=== PATIENT | female | born 1985 | race Two or more races ===

== ENCOUNTER → 2017-12-20 | Outpatient (CLI) | payer MEDICAID ==
[2017-12-20 14:04] LABS: Alcohol, Urine < 3.0 mg/dL (0-5); Amphetamine Screen, Urine NEGATIVE (NEGATIVE); Barbiturate Scree,Urine NEGATIVE (NEGATIVE); Benzodiazephine Screen, Urine NEGATIVE (NEGATIVE); Cannabinoid Screen, Urine NEGATIVE (NEGATIVE); Cocaine Screen, Urine NEGATIVE (NEGATIVE); Opiate Scree,Urine NEGATIVE (NEGATIVE); Phencyclidine Screen, Urine NEGATIVE (NEGATIVE)
[2017-12-20 15:59] LABS: Hematocrit 36.5 % (36.0-46.0); Mean Corpuscular Hemoglobin 27.1 pg (28.0-32.0); Mean Corpuscular Hgb Conc. 32.9 g/dL (32.0-36.0); Mean Corpuscular Volume 82.5 fL (80.0-100.0); Platelet Count (auto) 321 10^3/uL (140-450); Red Blood Cells 4.42 10^6/uL (4.0-5.20); Red Cell Distribution Width 14.2 % (11.8-14.3); White Blood Cell 11.1 10^3/uL (4.4-10.8)
[2017-12-20 16:16] LABS: Band Neutrophils % (manual) 0; Basophils % (manual) 0 (0.0-2.0); Blast Cells 0; Eosinophils % (manual) 0 (0-7); Metamyelocytes % 0; Myelocytes % 0; Promyelocytes % 0; Reactive Lymphocytes 0
[2017-12-20 17:24] LABS: Lymphocytes % (manual) 20 (10.0-50.0); Monocytes % (manual) 7 (0-12)
== END | disposition home or self-care (01) ==
LOC: LAB 09:51
PROVIDERS: ATTEND Obstetrics & Gynecology
DX: Z34.81 Encounter for supervision of other normal pregnancy, first trimester (principal); Z31.430 Encounter of female for testing for genetic disease carrier status for procreative management; Z20.2 Contact with and (suspected) exposure to infections with a predominantly sexual mode of transmission; Z3A.01 Less than 8 weeks gestation of pregnancy
CPT/HCPCS: 36415; 80307; 83036; 84144; 84702; 85007; 85027; 86703; 86762; 86850; 86900; 86901; 87086; 87340

== ENCOUNTER 2018-03-17 10:43 | Observation (INO) | payer MEDICAID ==
[2018-03-17] MEDS ORDERED: PREN-96 PO (12:36)
== END 2018-03-17 12:43 | disposition home or self-care (01) | DRG 566 ==
LOC: LDRP 10:43
PROVIDERS: ADMIT Obstetrics & Gynecology; ATTEND Obstetrics & Gynecology
DX: O36.63X0 Maternal care for excessive fetal growth, third trimester, not applicable or unspecified (principal); Z3A.31 31 weeks gestation of pregnancy
CPT/HCPCS: 59025; 76818; 81002; G0378

== ENCOUNTER 2018-03-25 10:50 | Observation (INO) | payer MEDICAID ==
[~2018-03-25] VITALS: Ht 152.4 cm; Wt 76.2 kg
[~2018-03-25 10:50] MED LIST: PREN-96 PO
== END 2018-03-25 12:20 | disposition home or self-care (01) | DRG 566 ==
LOC: LDRP 10:50
PROVIDERS: ADMIT Obstetrics & Gynecology; ATTEND Obstetrics & Gynecology
DX: O36.63X0 Maternal care for excessive fetal growth, third trimester, not applicable or unspecified (principal); Z3A.32 32 weeks gestation of pregnancy
CPT/HCPCS: 59025; 76818; 81002; G0378

== ENCOUNTER 2018-03-30 15:07 | Observation (INO) | payer MEDICAID ==
[2018-03-30 16:27] LABS: Albumin 2.4 g/dL (3.4-5.0); BUN/Creatinine Ratio 15.4; Calcium 8.4 mg/dL (8.5-10.1); Hemoglobin 9.4 g/dL (12.2-16.2); Potassium 3.7 mmol/L (3.5-5.1); Uric Acid 3.1 mg/dL (2.6-6.0); White Blood Cell 9.3 10^3/uL (4.4-10.8)
[2018-03-30 16:30] LABS: Bilirubin, Total 0.2 mg/dL (0.2-1.0); Total Protein 7.1 g/dL (6.4-8.2)
[2018-03-30 16:31] LABS: Urine Bacteria FEW /hpf (None Seen); Urine Blood Negative /uL (Negative); Urine Specific Gravity 1.008 (1.001-1.035); Urine WBC 1 /hpf (0 - 5)
[2018-03-30 16:31] LABS: Hematocrit 28.8 % (36.0-46.0); Mean Corpuscular Hemoglobin 23.8 pg (28.0-32.0); Mean Corpuscular Hgb Conc. 32.6 g/dL (32.0-36.0); Platelet Count (auto) 353 10^3/uL (140-450); Red Blood Cells 3.94 10^6/uL (4.0-5.20)
[2018-03-30 16:45] LABS: Basophils % (manual) 0 (0.0-2.0); Blast Cells 0; Myelocytes % 0; Promyelocytes % 0; Reactive Lymphocytes 0
[2018-03-30 17:12] LABS: INR 0.91 (0.9-1.15); Partial Thromboplastin Time 23.4 sec (23.78-33.04); Prothrombin Time 9.8 sec (9.27-12.13)
[2018-03-30 17:39] LABS: Band Neutrophils % (manual) 3; Eosinophils % (manual) 1 (0-7); Lymphocytes % (manual) 18 (10.0-50.0); Metamyelocytes % 1; Monocytes % (manual) 6 (0-12)
== END 2018-03-30 17:42 | disposition home or self-care (01) | DRG 566 ==
LOC: LDRP 15:07
PROVIDERS: ADMIT Obstetrics & Gynecology; ATTEND Obstetrics & Gynecology
DX: O26.893 Other specified pregnancy related conditions, third trimester (principal); R10.30 Lower abdominal pain, unspecified; Z3A.33 33 weeks gestation of pregnancy
CPT/HCPCS: 36415; 59025; 76818; 80053; 81001; 81002; 84550; 85007; 85027; 85610; 85730; G0378

== ENCOUNTER 2018-04-02 13:28 | Observation (INO) | payer MEDICAID ==
[2018-04-02 14:49] LABS: Protein, Urine 28.2 mg/dL (0.0-11.9)
[2018-04-02 15:04] LABS: 24 Hr. Total Protein, Urine 860.1 mg/24 Hr (<149.1)
[2018-04-02 16:41] LABS: Albumin 2.5 g/dL (3.4-5.0); Bilirubin, Total 0.2 mg/dL (0.2-1.0); Calcium 8.9 mg/dL (8.5-10.1); Hemoglobin 10.5 g/dL (12.2-16.2); Mean Corpuscular Hemoglobin 24.6 pg (28.0-32.0); Mean Corpuscular Volume 72.3 fL (80.0-100.0); Platelet Count (auto) 400 10^3/uL (140-450); Potassium 3.9 mmol/L (3.5-5.1); Red Blood Cells 4.28 10^6/uL (4.0-5.20); Red Cell Distribution Width 16.3 % (11.8-14.3); Total Protein 7.7 g/dL (6.4-8.2); Uric Acid 3.5 mg/dL (2.6-6.0); White Blood Cell 11.8 10^3/uL (4.4-10.8)
[2018-04-02 16:43] LABS: Basophils % (manual) 0 (0.0-2.0); Blast Cells 0; Eosinophils % (manual) 0 (0-7); Metamyelocytes % 0; Myelocytes % 0; Promyelocytes % 0; Reactive Lymphocytes 0
[2018-04-02 16:45] LABS: INR 0.93 (0.9-1.15); Partial Thromboplastin Time 23.7 sec (23.78-33.04)
[2018-04-02 17:07] LABS: BUN/Creatinine Ratio 14.3
[2018-04-02 17:23] LABS: Band Neutrophils % (manual) 6
[2018-04-02 17:24] LABS: Lymphocytes % (manual) 13 (10.0-50.0); Monocytes % (manual) 10 (0-12)
[2018-04-02] MEDS ORDERED: BETAMETHASONE ACET (6MG/ML) 5ML VIAL IM ONE (17:30)
== END 2018-04-02 17:50 | disposition home or self-care (01) | DRG 566 ==
LOC: LDRP 13:28
PROVIDERS: ADMIT Obstetrics & Gynecology; ATTEND Obstetrics & Gynecology
DX: O13.3 Gestational [pregnancy-induced] hypertension without significant proteinuria, third trimester (principal); Z3A.33 33 weeks gestation of pregnancy
CPT/HCPCS: 36415; 59025; 80053; 81002; 84156; 84550; 85007; 85027; 85610; 85730; 96372; G0378; J0702

== ENCOUNTER 2018-04-03 19:17 | Observation (INO) | payer MEDICAID ==
[~2018-04-03] VITALS: Ht 152.4 cm; Wt 76.2 kg
[2018-04-03] MEDS ORDERED: BETAMETHASONE ACET (6MG/ML) 5ML VIAL IM SCH (20:00)
== END 2018-04-03 21:54 | disposition home or self-care (01) | DRG 566 ==
LOC: LDRP 19:17
PROVIDERS: ADMIT Specialist; ATTEND Specialist
DX: O62.9 Abnormality of forces of labor, unspecified (principal); Z3A.34 34 weeks gestation of pregnancy
CPT/HCPCS: 59025; 76818; 81002; 96372; G0378

== ENCOUNTER 2018-04-06 11:05 | Observation (INO) | payer MEDICAID | END 2018-04-06 13:08 | disposition home or self-care (01) | DRG 566 | LOC: LDRP 11:05 | PROVIDERS: ADMIT Specialist; ATTEND Specialist | DX: O36.63X0 Maternal care for excessive fetal growth, third trimester, not applicable or unspecified (principal); F79 Unspecified intellectual disabilities; O99.343 Other mental disorders complicating pregnancy, third trimester; Z3A.34 34 weeks gestation of pregnancy | CPT/HCPCS: 59025; 76818; 81002; G0378 ==

== ENCOUNTER 2018-04-13 11:17 | Observation (INO) | payer MEDICAID | END 2018-04-13 12:30 | disposition home or self-care (01) | DRG 563 | LOC: LDRP 11:17 | PROVIDERS: ADMIT Specialist; ATTEND Specialist | DX: O60.03 Preterm labor without delivery, third trimester (principal); Z3A.35 35 weeks gestation of pregnancy | CPT/HCPCS: 76818; G0378; 59025; 81002 ==

== ENCOUNTER 2018-04-15 12:30 | Observation (INO) | payer MEDICAID ==
[2018-04-15] MEDS ORDERED: NIF10C GT (13:18)
== END 2018-04-15 13:30 | disposition home or self-care (01) | DRG 566 ==
LOC: LDRP 12:30
PROVIDERS: ADMIT Specialist; ATTEND Specialist
DX: O62.9 Abnormality of forces of labor, unspecified (principal); Z3A.35 35 weeks gestation of pregnancy
CPT/HCPCS: 59025; 81002; G0378

== ENCOUNTER 2018-04-22 21:01 | Observation (INO) | payer MEDICAID ==
[~2018-04-22 21:01] MED LIST changes: +NIF10C GT
== END 2018-04-23 00:10 | disposition home or self-care (01) | DRG 566 ==
LOC: LDRP 21:01
PROVIDERS: ADMIT Specialist; ATTEND Specialist
DX: O36.63X0 Maternal care for excessive fetal growth, third trimester, not applicable or unspecified (principal); Z3A.36 36 weeks gestation of pregnancy
CPT/HCPCS: 59025; 76818; 81002; G0378

== ENCOUNTER 2018-04-27 11:06 | Observation (INO) | payer MEDICAID | END 2018-04-27 12:30 | disposition home or self-care (01) | DRG 566 | LOC: LDRP 11:06 | PROVIDERS: ADMIT Specialist; ATTEND Specialist | DX: O36.63X0 Maternal care for excessive fetal growth, third trimester, not applicable or unspecified (principal); Z3A.37 37 weeks gestation of pregnancy | CPT/HCPCS: 59025; 76818; 81002; G0378 ==

== ENCOUNTER 2018-05-04 10:24 | Observation (INO) | payer MEDICAID | END 2018-05-04 12:15 | disposition home or self-care (01) | DRG 566 | LOC: LDRP 10:24 | PROVIDERS: ADMIT Obstetrics & Gynecology; ATTEND Obstetrics & Gynecology | DX: O36.63X0 Maternal care for excessive fetal growth, third trimester, not applicable or unspecified (principal); Z3A.38 38 weeks gestation of pregnancy | CPT/HCPCS: 59025; 76818; 81002; G0378 ==

== ENCOUNTER 2018-05-10 08:55 | Observation (INO) | payer MEDICAID ==
[~2018-05-10 08:55] MED LIST changes: -NIF10C GT
[2018-05-10 10:13] LABS: Hemoglobin 10.8 g/dL (12.2-16.2)
[2018-05-10 10:15] LABS: Hematocrit 33.7 % (36.0-46.0); Mean Corpuscular Hgb Conc. 32.2 g/dL (32.0-36.0); Mean Corpuscular Volume 71.6 fL (80.0-100.0); Platelet Count (auto) 333 10^3/uL (140-450); Red Blood Cells 4.71 10^6/uL (4.0-5.20); Red Cell Distribution Width 19.1 % (11.8-14.3); White Blood Cell 10.5 10^3/uL (4.4-10.8)
[2018-05-10 10:20] LABS: Blast Cells 0; Metamyelocytes % 0; Myelocytes % 0; Promyelocytes % 0; Reactive Lymphocytes 0
[2018-05-10 10:33] LABS: Albumin 2.5 g/dL (3.4-5.0); Calcium 8.9 mg/dL (8.5-10.1); Potassium 3.9 mmol/L (3.5-5.1); Uric Acid 6.2 mg/dL (2.6-6.0)
[2018-05-10 10:36] LABS: BUN/Creatinine Ratio 15.8; Bilirubin, Total 0.3 mg/dL (0.2-1.0); Total Protein 7.2 g/dL (6.4-8.2)
[2018-05-10 10:39] LABS: INR 0.88 (0.9-1.15); Partial Thromboplastin Time 26.1 sec (23.78-33.04); Prothrombin Time 9.5 sec (9.27-12.13)
[2018-05-10 10:49] LABS: Band Neutrophils % (manual) 3; Basophils % (manual) 1 (0.0-2.0); Eosinophils % (manual) 3 (0-7); Lymphocytes % (manual) 27 (10.0-50.0); Monocytes % (manual) 4 (0-12)
[2018-05-10 10:56] LABS: Urine Bacteria NONE SEEN /hpf (None Seen); Urine Blood Negative /uL (Negative); Urine Specific Gravity 1.018 (1.001-1.035); Urine WBC 2 /hpf (0 - 5)
[2018-05-11] MEDS ORDERED: FERR-7 PO (05:00)
== END 2018-05-10 11:35 | disposition home or self-care (01) | DRG 566 ==
LOC: LDRP 08:55
PROVIDERS: ADMIT Obstetrics & Gynecology; ATTEND Obstetrics & Gynecology
DX: O13.3 Gestational [pregnancy-induced] hypertension without significant proteinuria, third trimester (principal); O62.9 Abnormality of forces of labor, unspecified; Z3A.39 39 weeks gestation of pregnancy
CPT/HCPCS: 36415; 59025; 80053; 81001; 81002; 84550; 85007; 85027; 85610; 85730; 86850; 86900; 86901; G0378

== ENCOUNTER 2018-05-10 20:05 | Inpatient (IN) | payer MEDICAID ==
[~2018-05-10] VITALS: Ht 152.4 cm; Wt 75.3 kg
[2018-05-10] MEDS ORDERED: LACT. RINGERS/OXYTOCIN 20UNITS 1,000 ML IV SCH (20:10)
[2018-05-10] MEDS ORDERED: LIDOCAINE 2%HCL (LOCAL ANESTH.) INJ 20ML MDV ID ONE (20:15)
[2018-05-10] MEDS ORDERED: WITCH HAZEL-GLYCERIN PAD TOP PRN (20:15)
[2018-05-10] MEDS ORDERED: NALBUPHINE HCL 10 MG/1ml INJECTION IV PRN (20:15)
[2018-05-10] MEDS ORDERED: PROMETHAZINE HCL 25 MG/ML 1ML IV PRN (20:15)
[2018-05-10] MEDS ORDERED: PHISODERM TOP SOLN 240ML BTL TOP PRN (20:15)
[2018-05-10] MEDS ORDERED: CARBOPROST TROMETHAMINE 250 MCG/1ML VIAL IM PRN (20:15)
[2018-05-10] MEDS ORDERED: DERMOPLAST 60ML BOTTLE TOP PRN (20:15)
[2018-05-10] MEDS: LACTATED RINGER'S 1,000 ML IV SCH (20:58)
[2018-05-11] VITALS (8 sets, daily range): BP systolic 105–146; BP diastolic 60–74
[2018-05-11] MEDS: LACTATED RINGER'S 1,000 ML IV SCH ×3 (03:50→20:41)
[2018-05-11] MEDS ORDERED: FERR-7 PO (05:00)
[2018-05-11] MEDS ORDERED: MORPHINE SULF(PF) 0.5MG/ML 10ML VIAL ONE (14:41)
[2018-05-11] MEDS ORDERED: MIDAZOLAM HCL 1MG/1ML-2 ML VIAL ONE (14:41)
[2018-05-11] MEDS ORDERED: fentaNYL CITRATE 100 MCG/2 ML VL ONE (14:41)
[2018-05-11] MEDS ORDERED: TETRACAINE 1% INJ 2 ML VIAL IJ ONE (14:41)
[2018-05-11] MEDS ORDERED: DexAMETHasone SOD PHOS 10MG/1ML VIAL INJ IV PRN (14:45)
[2018-05-11] MEDS ORDERED: KETOROLAC TROMETH 30 MG/ML 1ML VIAL IV ONE (14:45)
[2018-05-11] MEDS ORDERED: KETOROLAC TROMETH 30 MG/ML 1ML VIAL IV PRN (14:45)
[2018-05-11] MEDS ORDERED: ONDANSETRON HCL 4 MG/2 ML VIAL IV PRN ×2 (14:45→16:00)
[2018-05-11] MEDS ORDERED: LABETALOL HCL 5 MG/ML 4ML SYRINGE IV PRN (14:45)
[2018-05-11] MEDS ORDERED: HYDROmorphone HCL 2 MG/ML VL IV PRN ×2 (14:45)
[2018-05-11] MEDS ORDERED: ePHEDrine SULFATE 50 MG/ML AMP IV PRN (14:45)
[2018-05-11] MEDS ORDERED: NALOXONE HCL 0.4 MG/ML VIAL IV PRN (14:45)
[2018-05-11] MEDS ORDERED: NALBUPHINE HCL 10 MG/1ml INJECTION SUBCUT ONE (14:45)
[2018-05-11] MEDS ORDERED: diphenhdrAMINE HCL 50 MG/1 ML VL IV PRN (14:45)
[2018-05-11] MEDS ORDERED: ceFAZolin 1GM VL ONE (14:49)
[2018-05-11] MEDS ORDERED: OXYTOCIN 10 UNIT/ML 10ML VIAL ONE (14:49)
[2018-05-11] MEDS ORDERED: CARBOPROST TROMETHAMINE 250 MCG/1ML VIAL IM ONE (15:24)
[2018-05-11] MEDS ORDERED: METHYLERGONOVINE MALEATE 0.2 MG/ML AMP IM ONE (15:24)
[2018-05-11] MEDS ORDERED: MORPHINE SULFATE 4 MG/ML SYR/VIAL IV ONE (16:00)
[2018-05-11] MEDS ORDERED: ceFAZolin 1GM/50ML 50 ML IV SCH (16:00)
[2018-05-11] MEDS: LACT. RINGERS/OXYTOCIN 20UNITS 1,000 ML IV SCH ×2 (16:50→22:29)
[2018-05-11] MEDS: KETOROLAC TROMETH 30 MG/ML 1ML VIAL IV PRN (18:35)
[2018-05-11 20:16] LABS: Basophils # (auto) 0.1 uL; Eosinophils # (auto) 0.2 uL; Eosinophils % (auto) 2.1 % (0.0-7.0); Monocytes # (auto) 0.5 uL; Neutrophils # (auto) 7.7 uL; White Blood Cell 10.5 10^3/uL (4.4-10.8)
[2018-05-11 20:18] LABS: Basophils % (auto) 0.7 % (0.0-2.0); Hematocrit 29.7 % (36.0-46.0); Hemoglobin 9.4 g/dL (12.2-16.2); Lymphocytes % (auto) 18.9 % (10.0-50.0); Mean Corpuscular Hemoglobin 22.9 pg (28.0-32.0); Mean Corpuscular Hgb Conc. 31.7 g/dL (32.0-36.0); Mean Corpuscular Volume 72.4 fL (80.0-100.0); Monocytes % (auto) 4.7 % (0.0-12.0); Neutrophils % (auto) 73.6 % (37.0-80.0); Nucleated Red Blood Cells % 0.1 %; Platelet Count (auto) 296 10^3/uL (140-450)
[2018-05-11] MEDS: MORPHINE SULFATE 4 MG/ML SYR/VIAL IV PRN (20:39)
[2018-05-11] MEDS: ceFAZolin 1GM/50ML 50 ML IV SCH (21:46)
[2018-05-12] VITALS (11 sets, daily range): BP systolic 110–134; BP diastolic 55–78
[2018-05-12] MEDS: KETOROLAC TROMETH 30 MG/ML 1ML VIAL IV PRN (02:32)
[2018-05-12] MEDS: LACTATED RINGER'S 1,000 ML IV SCH (02:35)
[2018-05-12 05:05] LABS: RPR Non Reactive (Non Reactive)
[2018-05-12] MEDS: LACT. RINGERS/OXYTOCIN 20UNITS 1,000 ML IV SCH (05:09)
[2018-05-12 05:32] LABS: Basophils # (auto) 0.1 uL; Basophils % (auto) 0.6 % (0.0-2.0); Eosinophils # (auto) 0.1 uL; Hemoglobin 8.6 g/dL (12.2-16.2)
[2018-05-12 05:34] LABS: Eosinophils % (auto) 0.9 % (0.0-7.0); Lymphocytes # (auto) 2.1 uL; Lymphocytes % (auto) 19.7 % (10.0-50.0); Mean Corpuscular Hemoglobin 23.8 pg (28.0-32.0); Mean Corpuscular Hgb Conc. 33.2 g/dL (32.0-36.0); Mean Corpuscular Volume 71.6 fL (80.0-100.0); Monocytes # (auto) 0.5 uL; Monocytes % (auto) 4.7 % (0.0-12.0); Neutrophils # (auto) 7.9 uL; Neutrophils % (auto) 74.1 % (37.0-80.0); Platelet Count (auto) 272 10^3/uL (140-450); Red Blood Cells 3.64 10^6/uL (4.0-5.20); White Blood Cell 10.7 10^3/uL (4.4-10.8)
[2018-05-12 05:38] LABS: Red Cell Distribution Width 21.3 % (11.8-14.3)
[2018-05-12] MEDS: ceFAZolin 1GM/50ML 50 ML IV SCH ×2 (05:45→13:51)
[2018-05-12] MEDS: MORPHINE SULFATE 4 MG/ML SYR/VIAL IV PRN (07:02)
[2018-05-12] MEDS: DOCUSATE SOD 100 MG CAP PO SCH ×2 (09:53→22:34)
[2018-05-12] MEDS: HYDROcodone-ACET 5/325MG TAB PO PRN ×3 (09:54→23:26)
[2018-05-12] MEDS: IBUPROFEN 800 MG TAB PO PRN (14:00)
[2018-05-13] MEDS: IBUPROFEN 800 MG TAB PO PRN ×2 (00:17→12:30)
[2018-05-13 02:52] VITALS: BP 108/69
[2018-05-13 07:19] VITALS: BP 111/70
[2018-05-13] MEDS: HYDROcodone-ACET 5/325MG TAB PO PRN ×3 (08:08→19:41)
[2018-05-13] MEDS: DOCUSATE SOD 100 MG CAP PO SCH ×2 (09:41→22:01)
[2018-05-13 11:00] VITALS: BP 126/86
[2018-05-13 15:00] VITALS: BP 126/91
[2018-05-13 23:30] VITALS: BP 119/72
[2018-05-14] MEDS: HYDROcodone-ACET 5/325MG TAB PO PRN ×4 (01:06→09:39)
[2018-05-14] MEDS: IBUPROFEN 800 MG TAB PO PRN (02:28)
[2018-05-14 07:08] VITALS: BP 105/66
[2018-05-14] MEDS: DOCUSATE SOD 100 MG CAP PO SCH (09:34)
[2018-05-14 11:05] VITALS: BP 110/72
== END 2018-05-14 11:15 | disposition home or self-care (01) | DRG 540 ==
LOC: LDRP 20:05
PROVIDERS: ADMIT Obstetrics & Gynecology; ATTEND Obstetrics & Gynecology
PROC: 0UL70CZ Occlusion of Bilateral Fallopian Tubes with Extraluminal Device, Open Approach (ICD-10-PCS; 2018-05-11)
PROC: 10D00Z1 Extraction of Products of Conception, Low, Open Approach (ICD-10-PCS; principal; 2018-05-11 14:54)
DX: O69.1XX0 Labor and delivery complicated by cord around neck, with compression, not applicable or unspecified (principal); O61.9 Failed induction of labor, unspecified; O36.63X0 Maternal care for excessive fetal growth, third trimester, not applicable or unspecified; Z30.2 Encounter for sterilization; Z37.0 Single live birth; Z3A.39 39 weeks gestation of pregnancy
CPT/HCPCS: 36415; 51702; 59025; 81002; 85025; 86592; 94762; 96361; 96366; 96375; G0378; J0690; J1885; J2250; J2590